=== PATIENT | female | born 1975 | race Caucasian/White ===

== ENCOUNTER 2022-12-05 15:12 | Emergency (ER) | payer OTHER, SELFPAY ==
[2022-12-05 15:16] VITALS: BP 139/104; PULSE 99; RESP 20; TEMP 36.6; O2SAT 97; BMI 36.3
--- NOTE | 2022-12-05 15:32 | CT_ITS ---
The [address] [address] Patient Name: RAKESH GUPTA MRN: [id number] date: 1975 Sex: F Assigned Patient Location: ER Current Patient Location: Accession/Order Number: [id number] Exam Date: 12/05/2022 16:14 Report Date: 12/05/2022 17:24 At the request of: AMARA RAY Procedure: CT abdomen pelvis w con CT abdomen pelvis w con, 12/05/2022 4:14 PM EDT INDICATION: right lower quadrant pain, hx of Crohn's disease COMPARISON: Contrast-enhanced CT scan of the abdomen and pelvis 09/08/2022 TECHNIQUE: Axial images of the abdomen and pelvis were obtained after the administration of IV contrast. Multiplanar reformatted images were generated and reviewed as needed. Dose reduction techniques were achieved by using automated exposure control and/or adjustment of mA and/or kV according to patient size and/or use of iterative reconstruction technique. FINDINGS: No consolidation or effusion. The liver, gallbladder, pancreas, spleen and adrenals are unremarkable. Symmetric nephrograms without evidence of obstruction. No urolithiasis. No urinary bladder wall thickening or perivesicular fat stranding. Anteverted uterus and adnexa are grossly unremarkable. No aortic aneurysm. Small sliding hiatal hernia. No bowel obstruction or acute focal inflammation. Patent ileocolic anastomosis. Colonic and rectal submucosal fat deposition likely secondary to chronic inflammation. No pneumatosis, pneumoperitoneum or ascites. No mesenteric or retroperitoneal lymphadenopathy. No acute fracture or dislocation. IMPRESSION: No acute findings. Electronically authenticated by: KAREN DAILEY Date: 12/05/2022 17:24
--- NOTE | 2022-12-05 15:35 | ED.ABDPAIN1 ---
HPI - Abdominal Pain General Chief Complaint: Abdominal Pain Stated Complaint: crohns flare up Time Seen by Provider: 12/05/22 15:14 Source: patient Mode of arrival: walk-in History of Present Illness HPI narrative: 47-year-old female presents for abdominal pain. She's complaining of pain in the right lower quadrant and she thinks it's a flareup of her Crohn's disease. She's been vomiting. A few weeks ago she had fissure surgical repair and that's unchanged. No fever or hematemesis. The pain is moderate and continuous. Related Data Home Medications Medication Instructions Recorded Confirmed fluoxetine 20 mg capsule 20 mg PO DAILY 12/05/22 12/05/22 meloxicam 15 mg tablet 15 mg PO DAILY 12/05/22 12/05/22 Previous Rx's Medication Instructions Recorded acetaminophen 300 mg-codeine 30 mg 1 tab PO Q6H PRN pain #20 tabs 12/05/22 tablet ondansetron HCl 4 mg tablet 4 mg PO Q6H PRN nausea and 12/05/22 vomiting #20 tabs Allergies Allergy/AdvReac Type Severity Reaction Status Date / Time No Known Drug Allergies Allergy Verified 12/05/22 15:19 Review of Systems ROS Narrative A ten point review of systems is negative except as noted above. Exam Narrative Exam Narrative: Nurses note and vital signs reviewed and patient is not hypoxic. General: The patient appears uncomfortable Skin: Warm, dry, no pallor noted. There is no rash noted. Head: Normocephalic, atraumatic Eye: Normal conjunctiva, no drainage Ears, Nose, Mouth, and Throat: oral mucosa is moist. Nares patent. Cardiovascular: Regular Rate and Rhythm Respiratory: Patient is in no distress, no accessory muscle use, lungs are clear to auscultation, no wheezing, rales or rhonchi Back: non-tender GI: tenderness present in the right lower quadrant. No distention or mass. Musculoskeletal: The patient has no evidence of calf tenderness, no pitting edema, symmetrical pulses noted bilaterally Neurological: A&O x4, normal speech Psychiatric: Cooperative Constitutional Vital Signs - 24 hr 12/05/22 15:16 Temperature 97.9 F Pulse Rate [Monitor] 99 H Respiratory Rate 20 Blood Pressure [Right Arm] 139/104 H Pulse Oximetry 97 Oxygen Delivery Method Room Air Course Vital Signs Vital signs: Vital Signs Temperature 97.9 F 12/05/22 15:16 Pulse Rate 99 H 12/05/22 15:16 Respiratory Rate 20 12/05/22 15:16 Blood Pressure 139/104 H 12/05/22 15:16 Pulse Oximetry 97 12/05/22 15:16 Oxygen Delivery Method Room Air 12/05/22 15:16 Temperature 97.9 F 12/05/22 15:16 Pulse Rate 99 H 12/05/22 15:16 Respiratory Rate 20 12/05/22 15:16 Blood Pressure 139/104 H 12/05/22 15:16 Pulse Oximetry 97 12/05/22 15:16 Oxygen Delivery Method Room Air 12/05/22 15:16 MDM - Abdominal Pain MDM Narrative Medical decision making narrative: blood work is essentially normal and CAT scan shows no acute findings. She's feeling improved and is able to be discharged home. Treatment diagnosis and follow-up were discussed with the patient. Differential Diagnosis Differential diagnosis: Likely abdominal pain, acute appendicitis, calculus of kidney, constipation, diverticulitis, gastroenteritis, pancreatitis and small bowel obstruction Lab Data Attestation: I reviewed the patient's lab results. Labs: Lab Results 12/05/22 Range/Units 15:27 WBC 7.9 (4.0-11.0) 10^3/uL RBC 4.60 (4.20-5.40) 10^6/uL Hgb 13.4 (12.0-16.0) g/dL Hct 40.5 (36.0-48.0) % MCV 88.0 (81.0-99.0) fL MCH 29.1 (26.7-34.0) pg MCHC 33.1 (29.9-35.2) g/dL RDW 12.8 (11.0-15.0) % Plt Count 323 (150-450) 10^3/uL MPV 9.0 L (9.5-13.5) fL Neut % (Auto) 51.2 (43.0-75.0) % Lymph % (Auto) 41.1 (20.5-60.0) % [place] % (Auto) 5.4 (1.7-12.0) % Eos % (Auto) 1.4 (0.9-7.0) % Baso % (Auto) 0.6 (0.2-2.0) % Neut # (Auto) 4.0 (1.4-6.5) 10^3/uL Lymph # (Auto) 3.2 (1.2-3.8) 10^3/uL [place] # (Auto) 0.4 (0.3-0.8) 10^3/uL Eos # (Auto) 0.1 (0.0-0.7) 10^3/uL Baso # (Auto) 0.1 (0.0-0.1) 10^3/uL Abs Immat Gran (auto) 0.02 (0.00-0.03) 10^3/uL Imm/Tot Granulo (auto) 0.3 (0.0-0.5) % Sodium 139 (136-145) mmol/L Potassium 3.8 (3.5-5.1) mmol/L Chloride 104 (98-107) mmol/L Carbon Dioxide 24.5 (21.0-32.0) mmol/L Anion Gap 14.3 BUN 12.0 (7.0-18.0) mg/dL Creatinine 1.20 H (0.55-1.02) mg/dL Est GFR ( Amer) 58 L (>=60) Est GFR (Non-Af Amer) 48 L (>=60) BUN/Creatinine Ratio 10.0 Glucose 95 (74-106) mg/dL Calcium 9.2 (8.5-10.1) mg/dL Total Bilirubin 0.6 (0.2-1.0) mg/dL AST 36 (15-37) U/L ALT 54 (14-59) U/L Alkaline Phosphatase 85 (46-116) U/L Total Protein 8.2 (6.4-8.2) g/dL Albumin 3.9 (3.4-5.0) g/dL Globulin 4.3 g/dL Albumin/Globulin Ratio 0.9 Amylase 57 (25-115) U/L Lipase 204.0 (73.0-393.0) U/L Discharge Plan Discharge Chief Complaint: Abdominal Pain Clinical Impression: Abdominal pain Patient Disposition: Home, Self-Care Time of Disposition Decision: 17:46 Condition: Good Mode of Transportation: Private Vehicle Prescriptions / Home Meds: New acetaminophen-codeine 300-30 mg tablet 1 tab PO Q6H PRN (Reason: pain) Qty: 20 0RF ondansetron HCl 4 mg tablet 4 mg PO Q6H PRN (Reason: nausea and vomiting) Qty: 20 0RF No Action fluoxetine 20 mg capsule 20 mg PO DAILY meloxicam 15 mg tablet 15 mg PO DAILY Instructions: Abdominal Pain (ED) Stand Alone Forms: Portal Instructions Referrals: Physician,Non-Staff, MD [Primary Care Provider] - 1 week
[2022-12-05] MEDS: ONDANSETRON PF 4 MG/2 ML VIAL IV (15:46)
[2022-12-05 16:03] LABS: Basophils Absolute Auto 0.1 10^3/uL (0.0-0.1); Basophils Percent Auto 0.6 % (0.2-2.0); Eosinophils Absolute Auto 0.1 10^3/uL (0.0-0.7); Eosinophils Percent Auto 1.4 % (0.9-7.0); Hematocrit 40.5 % (36.0-48.0); Hemoglobin 13.4 g/dL (12.0-16.0); Immature Granulocytes Abs Auto 0.02 10^3/uL (0.00-0.03); Immature Granulocytes Pct Auto 0.3 % (0.0-0.5); Lymphocytes Absolute Auto 3.2 10^3/uL (1.2-3.8); Lymphocytes Percent Auto 41.1 % (20.5-60.0); Mean Corpuscular HGB Conc 33.1 g/dL (29.9-35.2); Mean Corpuscular Hemoglobin 29.1 pg (26.7-34.0); Monocytes Absolute Auto 0.4 10^3/uL (0.3-0.8); Monocytes Percent Auto 5.4 % (1.7-12.0); Neutrophils Percent Auto 51.2 % (43.0-75.0); Platelet Count 323 10^3/uL (150-450); Red Cell Distribution Width 12.8 % (11.0-15.0); White Blood Count 7.9 10^3/uL (4.0-11.0)
[2022-12-05 16:18] LABS: Alanine Aminotransferase 54 U/L (14-59); Albumin Globulin Ratio 0.9; Albumin Level 3.9 g/dL (3.4-5.0); Alkaline Phosphatase 85 U/L (46-116); Anion Gap 14.3; Aspartate Amino Transferase 36 U/L (15-37); Bilirubin Total 0.6 mg/dL (0.2-1.0); Calcium 9.2 mg/dL (8.5-10.1); Carbon Dioxide 24.5 mmol/L (21.0-32.0); Chloride 104 mmol/L (98-107); Estimated GFR (African America 58 (>=60); Estimated GFR (Non-African Ame 48 (>=60); Globulin 4.3 g/dL; Glucose 95 mg/dL (74-106); Potassium 3.8 mmol/L (3.5-5.1); Sodium 139 mmol/L (136-145); Total Protein 8.2 g/dL (6.4-8.2)
[2022-12-05 16:21] LABS: Amylase 57 U/L (25-115)
[2022-12-05] MEDS: MORPHINE SULFATE 4 MG/ML VIAL IV (16:38)
[2022-12-05] MEDS: 0.9 % SODIUM CHLORIDE 1,000 ML 1000 ML IV (16:39)
== END 2022-12-05 17:58 | disposition home or self-care (01) ==
PROVIDERS: Emergency Provider Emergency Medicine
DX: R10.9 Unspecified abdominal pain (principal); K50.90 Crohn's disease, unspecified, without complications
CPT/HCPCS: 36415; 74177; 80053; 82150; 83690; 85025; 96374; 96375; 99285; Q9967

== ENCOUNTER 2024-05-02 21:34 | Emergency (ER) | payer OTHER, SELFPAY ==
[2024-05-02 21:59] VITALS: BP 115/90; PULSE 104; TEMP 37.1; O2SAT 99; BMI 33.2
== END 2024-05-02 22:37 | disposition left against medical advice (07) ==
PROVIDERS: Emergency Provider Internal Medicine
DX: J06.9 Acute upper respiratory infection, unspecified (principal); Z53.21 Procedure and treatment not carried out due to patient leaving prior to being seen by health care provider